=== PATIENT | female | born 1965 | race African-American/Black ===

== ENCOUNTER → 2020-04-19 | Outpatient (CLI) | payer MEDICAID, MEDICARE ==
[~2020-04-19] MED LIST: REGADENOSON 0.4 MG/5 ML SYRINGE ONE
== END | disposition home or self-care (01) ==
LOC: CFH 07:58
PROVIDERS: ATTEND Internal Medicine Cardiovascular Disease
DX: I10 Essential (primary) hypertension (principal); I05.0 Rheumatic mitral stenosis
CPT/HCPCS: 78452; 93017; A9502; J2785